=== PATIENT | female | born 1970 | race Caucasian/White ===

== ENCOUNTER 2018-06-03 08:30 | Day surgery (SDC) | payer OTHER ==
[~2018-06-03 08:30] MED LIST: HEARTBURN RELI150 MG PO; TOPROL XL25 M1 PO
== END 2018-06-03 14:50 | disposition home or self-care (01) ==
LOC: CIR.AMB 08:30
DX: S53.31XA Traumatic rupture of right ulnar collateral ligament, initial encounter (principal); M66.33 Spontaneous rupture of flexor tendons, forearm; G56.21 Lesion of ulnar nerve, right upper limb

== ENCOUNTER 2020-03-22 05:15 | Day surgery (SDC) | payer OTHER ==
[~2020-03-22 05:15] MED LIST changes: +ATORVASTATIN CA20 MG PO; +FAMOTI PO; +NEXIUM40 M1 PO; +VITAMIN B-125000 MC1 PO; +VITAMIN C1000 M2 PO; +VITAMIN D PO
== END 2020-03-22 12:30 | disposition home or self-care (01) ==
LOC: CIR.AMB 05:15
PROVIDERS: ATTEND Orthopaedic Surgery
DX: M75.111 Incomplete rotator cuff tear or rupture of right shoulder, not specified as traumatic (principal); M75.31 Calcific tendinitis of right shoulder; M75.51 Bursitis of right shoulder; Z20.828 Contact with and (suspected) exposure to other viral communicable diseases